=== PATIENT | male | born 1965 | race Two or more races ===

== ENCOUNTER 2016-10-17 10:36 | Inpatient (IN) | payer MEDICAID, MEDICARE ==
[2016-10-17] VITALS (32 sets, daily range): BP systolic 77–182; BP diastolic 29–81
[~2016-10-17] VITALS: Ht 172.7 cm; Wt 77.1 kg
[2016-10-17] MEDS ORDERED: PANTOPRAZOLE 40 MG VIAL ONE (10:51)
[2016-10-17] MEDS ORDERED: PANTOPRAZOLE 40 MG VIAL IV ONE (11:00)
[2016-10-17 11:11] LABS: BASOPHILS # (AUTO) 0.1 /CMM (0.0-0.2); BASOPHILS % (AUTO) 0.6 % (0.0-2.0); DIFF TOTAL % 100 %; EOSINOPHILS # (AUTO) 0.4 /CMM (0.0-0.7); EOSINOPHILS % (AUTO) 4.6 % (0.0-6.0); LYMPHOCYTES % (AUTO) 10.1 % (20.0-44.0); MEAN CORPUSCULAR HEMOGLOBIN 33 PG (26.0-33.0); MEAN CORPUSCULAR HGB CONC 34 g/dl (31.0-36.0); MEAN CORPUSCULAR VOLUME 96 fL (80-96); MONOCYTES # (AUTO) 0.8 /CMM (0.1-1.30); MONOCYTES % (AUTO) 8.6 % (2.0-12.0); NEUTROPHILS # (AUTO) 7.1 /CMM (1.8-8.9); NEUTROPHILS % (AUTO) 76.1 % (43.0-81.0); PLATELET COUNT (AUTO) 200 /CMM (150-450); WHITE BLOOD COUNT (AUTO) 9.4 K/uL (4.3-11.0)
[2016-10-17 11:15] LABS: RED BLOOD CELL COUNT(AUTO) 1.51 MIL/uL (4.5-6.0)
[2016-10-17 11:16] LABS: HEMOGLOBIN 4.9 g/dL (13.5-17.5)
[2016-10-17 11:17] LABS: HEMATOCRIT 14 % (39-51)
[2016-10-17 11:26] LABS: ALANINE AMINOTRANSFERASE 74 U/L (12-78); ANION GAP 11 (5-14); ASPARTATE AMINOTRANSFERASE 65 U/L (15-37); BILIRUBIN,DIRECT 0.2 mg/dL (0.0-0.2); BILIRUBIN,TOTAL 0.4 mg/dL (0.2-1.0); CALCIUM, SERUM 8.6 mg/dL (8.5-10.1); CARBON DIOXIDE 27 mmol/L (21-32); CHLORIDE 100 mmol/L (98-107); GFR 22 mL/min (>60); GLUCOSE 162 mg/dL (74-106); INDIRECT BILIRUBIN 0.2 mg/dL (0.0-1.1); POTASSIUM 4.8 mmol/L (3.5-5.1); SODIUM SERUM 133 mmol/L (136-145); TOTAL PROTEIN, SERUM 5.3 g/dL (6.4-8.2)
[2016-10-17 11:27] LABS: INR 1.2 (0.87-1.13); PROTHROMBIN TIME 12.6 SECS (9.5-12.7); TROPONIN I 0.071 ng/mL (0.00-0.056)
[2016-10-17 11:38] LABS: ALBUMIN 1.3 g/dL (3.4-5.0); UREA NITROGEN, BLOOD 96 mg/dL (7-18)
[2016-10-17 12:06] LABS: LACTIC ACID 2.2 mmol/L (0.4-2.0)
[2016-10-17 12:07] LABS: *LACTIC ACID REFLEX FLAG YES
[2016-10-17 12:42] LABS: ANISOCYTOSIS 1+; BAND % (MANUAL) 2 % (0.0-5.0); EOSINOPHILS % (MANUAL) 2 % (0-4); LYMPHOCYTES % (MANUAL) 7 % (16-48); PLATELET ESTIMATE ADEQUATE
[2016-10-17] MEDS ORDERED: BLOOD IV SET 1 EA INFUS.SET MC ONE ×2 (13:43→18:21)
[2016-10-17] MEDS ORDERED: IV NS 0.9% 250 ML IV ONE ×2 (13:43→18:22)
[2016-10-17] MEDS ORDERED: MAGNESIUM HYDROXIDE 30 ML UDC PO PRN (14:00)
[2016-10-17] MEDS ORDERED: MAG HYDROX/AL HYDROX/SIMETH 30 ML UDC PO PRN (14:00)
[2016-10-17] MEDS ORDERED: Z GUARD REMEDY 2 OZ OINT TP PRN (14:00)
[2016-10-17] MEDS ORDERED: ZOLPIDEM TARTRATE 5 MG TABLET PO PRN (14:00)
[2016-10-17] MEDS ORDERED: ONDANSETRON HCL/PF 4 MG/2 ML VIAL IVP PRN (14:00)
[2016-10-17] MEDS ORDERED: ACETAMINOPHEN 325 MG TABLET PO PRN (14:00)
[2016-10-18] VITALS (52 sets, daily range): BP systolic 112–153; BP diastolic 20–94
[2016-10-18 05:00] LABS: BASOPHILS # (AUTO) 0.1 /CMM (0.0-0.2); BASOPHILS % (AUTO) 0.6 % (0.0-2.0); DIFF TOTAL % 100 %; HEMATOCRIT 25 % (39-51); HEMOGLOBIN 8.4 g/dL (13.5-17.5); LYMPHOCYTES % (AUTO) 9.9 % (20.0-44.0); MEAN CORPUSCULAR HEMOGLOBIN 30 PG (26.0-33.0); MEAN CORPUSCULAR HGB CONC 34 g/dl (31.0-36.0); MEAN CORPUSCULAR VOLUME 89 fL (80-96); MONOCYTES # (AUTO) 0.7 /CMM (0.1-1.30); MONOCYTES % (AUTO) 7.1 % (2.0-12.0); NEUTROPHILS # (AUTO) 7.5 /CMM (1.8-8.9); NEUTROPHILS % (AUTO) 72.4 % (43.0-81.0); PLATELET COUNT (AUTO) 203 /CMM (150-450); RED BLOOD CELL COUNT(AUTO) 2.77 MIL/uL (4.5-6.0); WHITE BLOOD COUNT (AUTO) 10.3 K/uL (4.3-11.0)
[2016-10-18 05:15] LABS: BILIRUBIN,TOTAL 0.6 mg/dL (0.2-1.0); CALCIUM, SERUM 8.7 mg/dL (8.5-10.1); CREATININE 3.1 mg/dL (0.6-1.3); PHOSPHORUS 2.8 mg/dL (2.5-4.9); TOTAL PROTEIN, SERUM 5.6 g/dL (6.4-8.2)
[2016-10-18 05:37] LABS: ALBUMIN 1.4 g/dL (3.4-5.0)
[2016-10-18] MEDS ORDERED: PANTOPRAZOLE 40 MG TABLET.DR PO SCH (07:30)
[2016-10-18] MEDS: PANTOPRAZOLE 40 MG VIAL IV SCH (08:48)
[2016-10-18] MEDS ORDERED: EPOETIN ALFA (10,000 UNIT) 10,000 UNIT/ML VIAL SQ ONE (11:30)
[2016-10-18] MEDS ORDERED: IV SET PRIMARY PUMP SET 1 EA INFUS.SET MC ONE (11:40)
[2016-10-18] MEDS: IV D5/ 0.9% NACL 1,000 ML IV PRN (11:45)
[2016-10-18] MEDS ORDERED: SECONDARY IV SET 1 EA INFUS.SET MC ONE ×2 (13:16→16:41)
[2016-10-18] MEDS: MEROPENEM 500 MG in IV NS 0.9% 50 ML IV SCH (13:36)
[2016-10-18] MEDS ORDERED: ACET-868 GT (13:49)
[2016-10-18] MEDS ORDERED: HYDR-3326 GT (13:49)
[2016-10-18] MEDS ORDERED: THIA100T68 GT (13:49)
[2016-10-18] MEDS ORDERED: CHLO15MO2 MM (13:49)
[2016-10-18] MEDS ORDERED: ASPI81TA2 GT (13:49)
[2016-10-18] MEDS ORDERED: SUCR1ORA6 GT (13:49)
[2016-10-18] MEDS ORDERED: AMIO200T2 GT (13:49)
[2016-10-18] MEDS ORDERED: FOLI1TAB16 GT (13:49)
[2016-10-18] MEDS ORDERED: ZINC220C8 GT (13:49)
[2016-10-18] MEDS ORDERED: ASCO500S2 GT (13:49)
[2016-10-18] MEDS ORDERED: INSU100V27 SQ (13:49)
[2016-10-18] MEDS ORDERED: METO25TA6 GT (13:49)
[2016-10-18] MEDS ORDERED: FOLI0.8T2 GT (13:49)
[2016-10-18] MEDS ORDERED: NUTR100037 GT (13:49)
[2016-10-18] MEDS ORDERED: ACID1TAB12 GT (13:49)
[2016-10-18] MEDS ORDERED: AMIN30LI4 GT (13:49)
[2016-10-18] MEDS ORDERED: ATOR10TA GT (13:49)
[2016-10-18 14:04] LABS: HEMOGLOBIN 7.7 g/dL (13.5-17.5)
[2016-10-18] MEDS ORDERED: BLOOD IV SET 1 EA INFUS.SET MC ONE (16:24)
[2016-10-18] MEDS ORDERED: VANCOMYCIN 1 GM in IV D5W 250 ML IV ONE (17:00)
[2016-10-18] MEDS ORDERED: FEE PK DOSING 1 MIN EA MC ONE (19:29)
[2016-10-19] VITALS (40 sets, daily range): BP systolic 134–171; BP diastolic 38–88
[2016-10-19] MEDS: MEROPENEM 500 MG in IV NS 0.9% 50 ML IV SCH ×2 (01:32→13:30)
[2016-10-19 04:54] LABS: BASOPHILS % (AUTO) 0.5 % (0.0-2.0); DIFF TOTAL % 100 %; EOSINOPHILS # (AUTO) 1.3 /CMM (0.0-0.7); EOSINOPHILS % (AUTO) 17.8 % (0.0-6.0); HEMATOCRIT 25 % (39-51); HEMOGLOBIN 8.6 g/dL (13.5-17.5); LYMPHOCYTES # (AUTO) 0.6 /CMM (0.8-4.8); LYMPHOCYTES % (AUTO) 7.8 % (20.0-44.0); MEAN CORPUSCULAR HEMOGLOBIN 31 PG (26.0-33.0); MEAN CORPUSCULAR HGB CONC 34 g/dl (31.0-36.0); MEAN CORPUSCULAR VOLUME 89 fL (80-96); MONOCYTES # (AUTO) 0.6 /CMM (0.1-1.30); MONOCYTES % (AUTO) 8.2 % (2.0-12.0); NEUTROPHILS % (AUTO) 65.7 % (43.0-81.0); PLATELET COUNT (AUTO) 184 /CMM (150-450); RED BLOOD CELL COUNT(AUTO) 2.81 MIL/uL (4.5-6.0); WHITE BLOOD COUNT (AUTO) 7.6 K/uL (4.3-11.0)
[2016-10-19 05:05] LABS: CALCIUM, SERUM 8.4 mg/dL (8.5-10.1); CREATININE 2.6 mg/dL (0.6-1.3); PHOSPHORUS 2.8 mg/dL (2.5-4.9); POTASSIUM 4.1 mmol/L (3.5-5.1)
[2016-10-19] MEDS: PANTOPRAZOLE 40 MG VIAL IV SCH (07:50)
[2016-10-19] MEDS ORDERED: ROCURONIUM BROMIDE 50 MG/5 ML ONE (08:53)
[2016-10-19] MEDS ORDERED: VANCOMYCIN 500 MG in IV D5W 100 ML IV PRN (09:00)
[2016-10-19] MEDS ORDERED: RENAL NOVASOURCE 1,000 ML BOTTLE GT PRN (10:30)
[2016-10-19] MEDS: SUCRALFATE 1 G/10 ML UDC GT SCH ×3 (12:05→21:03)
[2016-10-19] MEDS ORDERED: HYDROGEL DRESSING 90 GM TUBE TP PRN (14:30)
[2016-10-19] MEDS: HYDROGEL DRESSING 90 GM TUBE TP SCH (14:41)
[2016-10-19] MEDS ORDERED: ANESTHESIA TRAY IN PYXIS 1 EA TRAY MC ONE (15:06)
[2016-10-19] MEDS: IV D5/ 0.9% NACL 1,000 ML IV PRN (21:05)
[2016-10-20] VITALS (44 sets, daily range): BP systolic 128–165; BP diastolic 42–106
[2016-10-20] MEDS: MEROPENEM 500 MG in IV NS 0.9% 50 ML IV SCH ×2 (01:57→13:50)
[2016-10-20 05:05] LABS: BASOPHILS % (AUTO) 0.3 % (0.0-2.0); DIFF TOTAL % 100 %; EOSINOPHILS # (AUTO) 1.3 /CMM (0.0-0.7); EOSINOPHILS % (AUTO) 13.8 % (0.0-6.0); HEMATOCRIT 26 % (39-51); HEMOGLOBIN 8.8 g/dL (13.5-17.5); LYMPHOCYTES # (AUTO) 0.6 /CMM (0.8-4.8); LYMPHOCYTES % (AUTO) 6.1 % (20.0-44.0); MEAN CORPUSCULAR HEMOGLOBIN 30 PG (26.0-33.0); MEAN CORPUSCULAR HGB CONC 34 g/dl (31.0-36.0); MEAN CORPUSCULAR VOLUME 90 fL (80-96); MONOCYTES # (AUTO) 0.7 /CMM (0.1-1.30); MONOCYTES % (AUTO) 7.5 % (2.0-12.0); NEUTROPHILS # (AUTO) 6.9 /CMM (1.8-8.9); NEUTROPHILS % (AUTO) 72.3 % (43.0-81.0); PLATELET COUNT (AUTO) 208 /CMM (150-450); RED BLOOD CELL COUNT(AUTO) 2.91 MIL/uL (4.5-6.0); WHITE BLOOD COUNT (AUTO) 9.5 K/uL (4.3-11.0)
[2016-10-20 05:27] LABS: CALCIUM, SERUM 8.3 mg/dL (8.5-10.1); CREATININE 2.9 mg/dL (0.6-1.3); PHOSPHORUS 3.4 mg/dL (2.5-4.9)
[2016-10-20] MEDS: PANTOPRAZOLE 40 MG VIAL IV SCH (09:13)
[2016-10-20] MEDS: HYDROCODONE/APAP 5/325MG 1 EACH TABLET PO PRN ×2 (09:13→17:23)
[2016-10-20] MEDS: HYDROGEL DRESSING 90 GM TUBE TP SCH (09:13)
[2016-10-20] MEDS: SUCRALFATE 1 G/10 ML UDC GT SCH ×4 (09:13→22:20)
[2016-10-20] MEDS ORDERED: EPOETIN ALFA (10,000 UNIT) 10,000 UNIT/ML VIAL SQ ONE (09:30)
[2016-10-20] MEDS ORDERED: LINEZOLID RTU BAG 600 MG in PREMIX 1 EA IV SCH (17:00)
[2016-10-20] MEDS: LINEZOLID RTU BAG 600 MG in PREMIX 1 EA IV SCH (17:52)
[2016-10-20] MEDS ORDERED: VANCOMYCIN 1 GM in IV D5W 250 ML IV ONE (18:00)
[2016-10-21] VITALS (14 sets, daily range): BP systolic 133–168; BP diastolic 72–97
[2016-10-21] MEDS: IV D5/ 0.9% NACL 1,000 ML IV PRN (01:36)
[2016-10-21] MEDS: LINEZOLID RTU BAG 600 MG in PREMIX 1 EA IV SCH (05:08)
[2016-10-21] MEDS ORDERED: VANCOMYCIN 500 MG in IV D5W 100 ML IV PRN (06:00)
[2016-10-21 08:19] LABS: BASOPHILS % (AUTO) 0.3 % (0.0-2.0); DIFF TOTAL % 100 %; EOSINOPHILS # (AUTO) 1.2 /CMM (0.0-0.7); EOSINOPHILS % (AUTO) 15.9 % (0.0-6.0); HEMATOCRIT 24 % (39-51); HEMOGLOBIN 8.2 g/dL (13.5-17.5); LYMPHOCYTES # (AUTO) 0.6 /CMM (0.8-4.8); LYMPHOCYTES % (AUTO) 7.7 % (20.0-44.0); MEAN CORPUSCULAR HEMOGLOBIN 31 PG (26.0-33.0); MEAN CORPUSCULAR HGB CONC 34 g/dl (31.0-36.0); MEAN CORPUSCULAR VOLUME 91 fL (80-96); MONOCYTES # (AUTO) 0.8 /CMM (0.1-1.30); MONOCYTES % (AUTO) 10.2 % (2.0-12.0); NEUTROPHILS # (AUTO) 5.1 /CMM (1.8-8.9); NEUTROPHILS % (AUTO) 65.9 % (43.0-81.0); PLATELET COUNT (AUTO) 202 /CMM (150-450); RED BLOOD CELL COUNT(AUTO) 2.68 MIL/uL (4.5-6.0); WHITE BLOOD COUNT (AUTO) 7.8 K/uL (4.3-11.0)
[2016-10-21] MEDS: PANTOPRAZOLE 40 MG VIAL IV SCH (08:23)
[2016-10-21] MEDS: SUCRALFATE 1 G/10 ML UDC GT SCH (08:23)
[2016-10-21] MEDS: HYDROGEL DRESSING 90 GM TUBE TP SCH (08:29)
== END 2016-10-21 16:45 | DRG 951 ==
LOC: ER 10:37 → ICU 12:05 → TELE 10-21 06:02
PROVIDERS: ADMIT Internal Medicine; ATTEND Internal Medicine
PROC: 5A1955Z Respiratory Ventilation, Greater than 96 Consecutive Hours (ICD-10-PCS; principal; 2016-10-17)
PROC: 30233N1 Transfusion of Nonautologous Red Blood Cells into Peripheral Vein, Percutaneous Approach (ICD-10-PCS; principal; 2016-10-17)
PROC: 5A1D60Z (ICD-10-PCS; 2016-10-18)
PROC: 0D598ZZ Destruction of Duodenum, Via Natural or Artificial Opening Endoscopic (ICD-10-PCS; 2016-10-19)
PROC: 0D568ZZ Destruction of Stomach, Via Natural or Artificial Opening Endoscopic (ICD-10-PCS; 2016-10-19)
PROC: 0KBN0ZZ Excision of Right Hip Muscle, Open Approach (ICD-10-PCS; 2016-10-20)
PROC: 0KBP0ZZ Excision of Left Hip Muscle, Open Approach (ICD-10-PCS; 2016-10-20)
DX: K31.811 Angiodysplasia of stomach and duodenum with bleeding (principal); I21.4 Non-ST elevation (NSTEMI) myocardial infarction; E43 Unspecified severe protein-calorie malnutrition; G93.41 Metabolic encephalopathy; G93.1 Anoxic brain damage, not elsewhere classified; I13.2 Hypertensive heart and chronic kidney disease with heart failure and with stage 5 chronic kidney disease, or end stage renal disease; L89.154 Pressure ulcer of sacral region, stage 4; J96.11 Chronic respiratory failure with hypoxia; Z99.11 Dependence on respirator [ventilator] status; N18.6 End stage renal disease; R53.2 Functional quadriplegia; D62 Acute posthemorrhagic anemia; D68.59 Other primary thrombophilia; I50.32 Chronic diastolic (congestive) heart failure; E11.22 Type 2 diabetes mellitus with diabetic chronic kidney disease; I25.10 Atherosclerotic heart disease of native coronary artery without angina pectoris; I25.2 Old myocardial infarction; I44.0 Atrioventricular block, first degree; Z74.01 Bed confinement status; Z93.0 Tracheostomy status; Z95.2 Presence of prosthetic heart valve; Z99.2 Dependence on renal dialysis; K44.9 Diaphragmatic hernia without obstruction or gangrene; B96.89 Other specified bacterial agents as the cause of diseases classified elsewhere; I73.9 Peripheral vascular disease, unspecified; K74.60 Unspecified cirrhosis of liver; Z95.1 Presence of aortocoronary bypass graft; D50.0 Iron deficiency anemia secondary to blood loss (chronic); I34.2 Nonrheumatic mitral (valve) stenosis; E88.09 Other disorders of plasma-protein metabolism, not elsewhere classified; I36.1 Nonrheumatic tricuspid (valve) insufficiency; E83.9 Disorder of mineral metabolism, unspecified; L98.9 Disorder of the skin and subcutaneous tissue, unspecified; E11.622 Type 2 diabetes mellitus with other skin ulcer; L97.911 Non-pressure chronic ulcer of unspecified part of right lower leg limited to breakdown of skin; L97.311 Non-pressure chronic ulcer of right ankle limited to breakdown of skin; Z93.1 Gastrostomy status; B95.2 Enterococcus as the cause of diseases classified elsewhere; Z16.21 Resistance to vancomycin
CPT/HCPCS: 31720; 36415; 71010-TC; 80048-TC; 80053-TC; 80061-TC; 80076-TC; 80202-TC; 82272-TC; 82962-TC; 83605-TC; 83690-TC; 83735-TC; 84100-TC; 84484-TC; 85025-TC; 85027-TC; 85730-TC; 86850-TC; 86921-TC; 87040-TC; 87081-TC; 87186-TC; 90935-TC; 94002-TC; 94003-TC; 94760-TC; A4216; A4217; A4606; A6248; A6253; A6402; A6403; C9113; J0885; J2020; J2185; J3370; J7042; J7050; J7060; P9016-BL; Z7610

== ENCOUNTER 2016-10-22 00:26 | Inpatient (IN) | payer MEDICARE, MEDICAID ==
[~2016-10-22] VITALS: Ht 170.2 cm; Wt 71.2 kg
[~2016-10-22 00:26] MED LIST: ACET-868 GT; ACID1TAB12 GT; AMIN30LI4 GT; AMIO200T2 GT; ASCO500S2 GT; ASPI81TA2 GT; ATOR10TA GT; CHLO15MO2 MM; FOLI0.8T2 GT; FOLI1TAB16 GT; HYDR-3326 GT; INSU100V27 SQ; METO25TA6 GT; NUTR100037 GT; SUCR1ORA6 GT; THIA100T68 GT; ZINC220C8 GT
[2016-10-22 01:04] LABS: BASOPHILS % (AUTO) 0.1 % (0.0-2.0); DIFF TOTAL % 100 %; EOSINOPHILS # (AUTO) 1.1 /CMM (0.0-0.7); EOSINOPHILS % (AUTO) 11.7 % (0.0-6.0); HEMATOCRIT 27 % (39-51); LYMPHOCYTES # (AUTO) 0.6 /CMM (0.8-4.8); LYMPHOCYTES % (AUTO) 6.5 % (20.0-44.0); MEAN CORPUSCULAR HEMOGLOBIN 30 PG (26.0-33.0); MEAN CORPUSCULAR HGB CONC 33 g/dl (31.0-36.0); MEAN CORPUSCULAR VOLUME 91 fL (80-96); MONOCYTES # (AUTO) 0.8 /CMM (0.1-1.30); MONOCYTES % (AUTO) 8.3 % (2.0-12.0); NEUTROPHILS # (AUTO) 7.1 /CMM (1.8-8.9); NEUTROPHILS % (AUTO) 73.4 % (43.0-81.0); PLATELET COUNT (AUTO) 222 /CMM (150-450); RED BLOOD CELL COUNT(AUTO) 2.97 MIL/uL (4.5-6.0); WHITE BLOOD COUNT (AUTO) 9.7 K/uL (4.3-11.0)
[2016-10-22 01:15] LABS: CALCIUM, SERUM 8.6 mg/dL (8.5-10.1); CREATININE 2.8 mg/dL (0.6-1.3); POTASSIUM 3.9 mmol/L (3.5-5.1)
[2016-10-22 01:19] LABS: INR 1.06 (0.87-1.13); PROTHROMBIN TIME 11.5 SECS (9.5-12.7)
[2016-10-22 01:20] LABS: ALBUMIN 1.6 g/dL (3.4-5.0); BILIRUBIN,DIRECT 0.2 mg/dL (0.0-0.2); BILIRUBIN,TOTAL 0.5 mg/dL (0.2-1.0); INDIRECT BILIRUBIN 0.3 mg/dL (0.0-1.1); TOTAL PROTEIN, SERUM 6.4 g/dL (6.4-8.2)
[2016-10-22 01:22] LABS: TROPONIN I 0.035 ng/mL (0.00-0.056)
[2016-10-22 01:28] LABS: LACTIC ACID 1.1 mmol/L (0.4-2.0)
[2016-10-22 02:00] VITALS: BP 168/95
[2016-10-22] MEDS ORDERED: ZOLPIDEM TARTRATE 5 MG TABLET PO PRN (02:30)
[2016-10-22] MEDS ORDERED: ACETAMINOPHEN 325 MG TABLET PO PRN (02:30)
[2016-10-22] MEDS ORDERED: DEXTROSE 50%-WATER 50 ML DISP.SYRIN IV PRN (02:30)
[2016-10-22] MEDS ORDERED: ONDANSETRON HCL/PF 4 MG/2 ML VIAL IVP PRN (02:30)
[2016-10-22] MEDS ORDERED: MAGNESIUM HYDROXIDE 30 ML UDC PO PRN (02:30)
[2016-10-22] MEDS ORDERED: MORPHINE SULFATE INJ 2 MG/ML DISP.SYRIN IV PRN (02:30)
[2016-10-22] MEDS ORDERED: MAG HYDROX/AL HYDROX/SIMETH 30 ML UDC PO PRN (02:30)
[2016-10-22 04:00] VITALS: BP 159/83
[2016-10-22] MEDS ORDERED: hydrALAZINE HCL 10 MG TABLET ONE (04:41)
[2016-10-22] MEDS ORDERED: SUCRALFATE 1 G/10 ML UDC ONE (04:42)
[2016-10-22] MEDS ORDERED: MEROPENEM 1 G in IV NS 0.9% 100 ML IV SCH (05:00)
[2016-10-22] MEDS ORDERED: IV SET PRIMARY PUMP SET 1 EA INFUS.SET MC ONE (05:11)
[2016-10-22] MEDS ORDERED: IV NS 0.9% 1,000 ML ONE (05:11)
[2016-10-22] MEDS ORDERED: SECONDARY IV SET 1 EA INFUS.SET MC ONE ×2 (05:11→09:21)
[2016-10-22] MEDS: hydrALAZINE HCL 10 MG TABLET PEG PRN (05:26)
[2016-10-22] MEDS: BLOOD SUGAR DIAGNOSTIC 1 EACH STRIP IN SCH ×3 (05:27→17:49)
[2016-10-22] MEDS: SUCRALFATE 1 G/10 ML UDC GT SCH ×3 (05:27→17:39)
[2016-10-22] MEDS: IV NS 0.9% 1,000 ML IV PRN ×2 (05:33→17:53)
[2016-10-22] MEDS ORDERED: hydrALAZINE HCL 10 MG TABLET PEG ONE (06:00)
[2016-10-22] MEDS ORDERED: IV NS 0.9% 100 ML IV ONE (06:30)
[2016-10-22 06:55] VITALS: BP 148/78
[2016-10-22] MEDS ORDERED: ASCORBIC ACID SYRUP 500 MG/5 ML UDC GT SCH (09:00)
[2016-10-22] MEDS ORDERED: METOPROLOL TARTRATE 25 MG TABLET GT SCH (09:00)
[2016-10-22] MEDS ORDERED: AMIODARONE HCL 200 MG TABLET GT SCH (09:00)
[2016-10-22 09:03] LABS: BASOPHILS % (AUTO) 0.2 % (0.0-2.0); DIFF TOTAL % 100 %; EOSINOPHILS # (AUTO) 1.4 /CMM (0.0-0.7); HEMATOCRIT 28 % (39-51); HEMOGLOBIN 9.4 g/dL (13.5-17.5); LYMPHOCYTES # (AUTO) 0.6 /CMM (0.8-4.8); LYMPHOCYTES % (AUTO) 7.9 % (20.0-44.0); MEAN CORPUSCULAR HEMOGLOBIN 31 PG (26.0-33.0); MEAN CORPUSCULAR HGB CONC 34 g/dl (31.0-36.0); MEAN CORPUSCULAR VOLUME 91 fL (80-96); MONOCYTES # (AUTO) 0.7 /CMM (0.1-1.30); MONOCYTES % (AUTO) 8.9 % (2.0-12.0); NEUTROPHILS # (AUTO) 5.2 /CMM (1.8-8.9); PLATELET COUNT (AUTO) 208 /CMM (150-450); RED BLOOD CELL COUNT(AUTO) 3.05 MIL/uL (4.5-6.0)
[2016-10-22] MEDS: VIT B CMPLX 3/FA/VIT C/BIOTIN 1 TAB TABLET GT SCH (09:03)
[2016-10-22] MEDS: ASPIRIN 81 MG TAB.CHEW GT SCH (09:04)
[2016-10-22] MEDS: ZINC SULFATE 220 MG CAPSULE GT SCH (09:04)
[2016-10-22] MEDS: THIAMINE HCL 100 MG TABLET GT SCH (09:04)
[2016-10-22] MEDS: ACIDOPHILUS/BULGARICUS 1 EACH TAB.CHEW GT SCH ×2 (09:04→17:39)
[2016-10-22] MEDS: PANTOPRAZOLE 40 MG VIAL IV SCH (09:07)
[2016-10-22] MEDS: CHLORHEXIDINE GLUCONATE 15 ML UDC MM SCH ×2 (09:07→20:39)
[2016-10-22] MEDS: HEPARIN SODIUM, PORCINE 5000 UNITS/1 ML VIAL SQ SCH ×2 (09:08→20:50)
[2016-10-22] MEDS: LINEZOLID RTU BAG 600 MG in PREMIX 1 EA IV SCH ×2 (09:10→20:38)
[2016-10-22] MEDS: RENAL NOVASOURCE 1,000 ML BOTTLE GT PRN (09:10)
[2016-10-22] MEDS: PROSOURCE / PROSTAT (PYXIS) 30 ML UDC GT SCH (09:12)
[2016-10-22] MEDS: Z GUARD REMEDY 2 OZ OINT TP PRN (09:15)
[2016-10-22] MEDS: ASCORBIC ACID 500 MG TABLET GT SCH ×2 (09:18→17:39)
[2016-10-22 09:19] LABS: CALCIUM, SERUM 8.5 mg/dL (8.5-10.1); CREATININE 2.9 mg/dL (0.6-1.3); PHOSPHORUS 2.7 mg/dL (2.5-4.9); POTASSIUM 3.9 mmol/L (3.5-5.1)
[2016-10-22 10:08] LABS: ANISOCYTOSIS 2+; PLATELET ESTIMATE ADEQUATE; RBC MORPHOLOGY COMMENT DIMORPHIC RBC MORPH
[2016-10-22 12:00] VITALS: BP 148/73
[2016-10-22] MEDS ORDERED: ALBUMIN 25% 25 GM in PREMIX 1 EA IV PRN (12:00)
[2016-10-22 16:00] VITALS: BP 150/70
[2016-10-22] MEDS: MEROPENEM 1 G in IV NS 0.9% 100 ML IV SCH (17:42)
[2016-10-22] MEDS: COD LIVER OIL/ZINC OXIDE 120 GM TUBE TP SCH (17:45)
[2016-10-22] MEDS: HYDROGEL DRESSING 90 GM TUBE TP SCH (17:46)
[2016-10-22] MEDS: CLOTRIMAZOLE 1% 15 GM TUBE TP SCH ×2 (17:46→17:55)
[2016-10-22] MEDS: INSULIN REGULAR, HUMAN 100 UNIT/ML 3 ML VIAL SQ PRN (17:53)
[2016-10-22 20:00] VITALS: BP 155/50
[2016-10-22] MEDS: ATORVASTATIN 10 MG TABLET GT SCH (21:41)
[2016-10-23] VITALS (9 sets, daily range): BP systolic 154–178; BP diastolic 22–93
[2016-10-23] MEDS: SUCRALFATE 1 G/10 ML UDC GT SCH ×4 (00:11→16:59)
[2016-10-23] MEDS: INSULIN REGULAR, HUMAN 100 UNIT/ML 3 ML VIAL SQ PRN ×2 (00:13→17:41)
[2016-10-23] MEDS: BLOOD SUGAR DIAGNOSTIC 1 EACH STRIP IN SCH ×4 (00:16→16:59)
[2016-10-23] MEDS: MEROPENEM 1 G in IV NS 0.9% 100 ML IV SCH ×2 (04:58→16:57)
[2016-10-23] MEDS: RENAL NOVASOURCE 1,000 ML BOTTLE GT PRN (05:27)
[2016-10-23] MEDS: PROSOURCE / PROSTAT (PYXIS) 30 ML UDC GT SCH (05:29)
[2016-10-23] MEDS: COD LIVER OIL/ZINC OXIDE 120 GM TUBE TP SCH (08:20)
[2016-10-23] MEDS: CLOTRIMAZOLE 1% 15 GM TUBE TP SCH ×2 (08:21→17:00)
[2016-10-23] MEDS: HYDROGEL DRESSING 90 GM TUBE TP SCH (08:21)
[2016-10-23] MEDS: LINEZOLID RTU BAG 600 MG in PREMIX 1 EA IV SCH (08:22)
[2016-10-23] MEDS: CHLORHEXIDINE GLUCONATE 15 ML UDC MM SCH ×2 (08:23→21:55)
[2016-10-23] MEDS: VIT B CMPLX 3/FA/VIT C/BIOTIN 1 TAB TABLET GT SCH (08:23)
[2016-10-23] MEDS: ZINC SULFATE 220 MG CAPSULE GT SCH (08:24)
[2016-10-23] MEDS: ACIDOPHILUS/BULGARICUS 1 EACH TAB.CHEW GT SCH ×2 (08:24→16:59)
[2016-10-23] MEDS: ASPIRIN 81 MG TAB.CHEW GT SCH (08:24)
[2016-10-23] MEDS: THIAMINE HCL 100 MG TABLET GT SCH (08:24)
[2016-10-23] MEDS: ASCORBIC ACID 500 MG TABLET GT SCH ×2 (08:24→16:59)
[2016-10-23] MEDS: PANTOPRAZOLE 40 MG VIAL IV SCH (08:24)
[2016-10-23] MEDS: HEPARIN SODIUM, PORCINE 5000 UNITS/1 ML VIAL SQ SCH ×2 (08:29→22:00)
[2016-10-23] MEDS ORDERED: SECONDARY IV SET 1 EA INFUS.SET MC ONE (08:37)
[2016-10-23] MEDS: IV NS 0.9% 1,000 ML IV PRN (13:36)
[2016-10-23] MEDS: hydrALAZINE HCL 25 MG TABLET GT SCH ×2 (14:26→21:55)
[2016-10-23] MEDS ORDERED: hydrALAZINE HCL IV 20 MG VIAL IV PRN (14:30)
[2016-10-23] MEDS ORDERED: hydrALAZINE HCL 25 MG TABLET PO SCH (14:30)
[2016-10-23] MEDS: hydrALAZINE HCL 10 MG TABLET PEG PRN (16:58)
[2016-10-23] MEDS: ATORVASTATIN 10 MG TABLET GT SCH (21:55)
[2016-10-23] MEDS: LINEZOLID 600 MG TABLET GT SCH (21:55)
[2016-10-24] VITALS (12 sets, daily range): BP systolic 122–157; BP diastolic 51–98
[2016-10-24] MEDS: RENAL NOVASOURCE 1,000 ML BOTTLE GT PRN (00:32)
[2016-10-24] MEDS: SUCRALFATE 1 G/10 ML UDC GT SCH ×5 (00:32→23:14)
[2016-10-24] MEDS: BLOOD SUGAR DIAGNOSTIC 1 EACH STRIP IN SCH ×5 (00:32→23:25)
[2016-10-24] MEDS: INSULIN REGULAR, HUMAN 100 UNIT/ML 3 ML VIAL SQ PRN ×3 (00:45→23:28)
[2016-10-24] MEDS: IV NS 0.9% 1,000 ML IV PRN (03:32)
[2016-10-24] MEDS: PROSOURCE / PROSTAT (PYXIS) 30 ML UDC GT SCH (05:01)
[2016-10-24] MEDS: hydrALAZINE HCL 25 MG TABLET GT SCH ×3 (05:01→22:05)
[2016-10-24 07:49] LABS: CALCIUM, SERUM 7.9 mg/dL (8.5-10.1); CREATININE 2.4 mg/dL (0.6-1.3); PHOSPHORUS 1.8 mg/dL (2.5-4.9); POTASSIUM 3.7 mmol/L (3.5-5.1)
[2016-10-24 07:51] LABS: BASOPHILS % (AUTO) 0.4 % (0.0-2.0); DIFF TOTAL % 100 %; EOSINOPHILS # (AUTO) 1.9 /CMM (0.0-0.7); EOSINOPHILS % (AUTO) 17.2 % (0.0-6.0); HEMATOCRIT 23 % (39-51); HEMOGLOBIN 7.8 g/dL (13.5-17.5); LYMPHOCYTES # (AUTO) 0.4 /CMM (0.8-4.8); MEAN CORPUSCULAR HEMOGLOBIN 31 PG (26.0-33.0); MEAN CORPUSCULAR HGB CONC 34 g/dl (31.0-36.0); MEAN CORPUSCULAR VOLUME 92 fL (80-96); MONOCYTES # (AUTO) 0.7 /CMM (0.1-1.30); MONOCYTES % (AUTO) 6.7 % (2.0-12.0); NEUTROPHILS # (AUTO) 7.8 /CMM (1.8-8.9); NEUTROPHILS % (AUTO) 71.7 % (43.0-81.0); PLATELET COUNT (AUTO) 207 /CMM (150-450); RED BLOOD CELL COUNT(AUTO) 2.51 MIL/uL (4.5-6.0); WHITE BLOOD COUNT (AUTO) 10.9 K/uL (4.3-11.0)
[2016-10-24] MEDS: HEPARIN SODIUM, PORCINE 5000 UNITS/1 ML VIAL SQ SCH (09:00)
[2016-10-24] MEDS: CHLORHEXIDINE GLUCONATE 15 ML UDC MM SCH ×2 (09:04→22:06)
[2016-10-24] MEDS: VIT B CMPLX 3/FA/VIT C/BIOTIN 1 TAB TABLET GT SCH (09:04)
[2016-10-24] MEDS: LINEZOLID 600 MG TABLET GT SCH ×2 (09:05→22:05)
[2016-10-24] MEDS: ASCORBIC ACID 500 MG TABLET GT SCH ×2 (09:05→17:00)
[2016-10-24] MEDS: ASPIRIN 81 MG TAB.CHEW GT SCH (09:05)
[2016-10-24] MEDS: ZINC SULFATE 220 MG CAPSULE GT SCH (09:05)
[2016-10-24] MEDS: PANTOPRAZOLE 40 MG VIAL IV SCH (09:05)
[2016-10-24] MEDS: THIAMINE HCL 100 MG TABLET GT SCH (09:05)
[2016-10-24] MEDS: ACIDOPHILUS/BULGARICUS 1 EACH TAB.CHEW GT SCH ×2 (09:05→17:00)
[2016-10-24] MEDS: HYDROGEL DRESSING 90 GM TUBE TP SCH (09:06)
[2016-10-24] MEDS: COD LIVER OIL/ZINC OXIDE 120 GM TUBE TP SCH (09:06)
[2016-10-24] MEDS: CLOTRIMAZOLE 1% 15 GM TUBE TP SCH ×2 (09:06→17:01)
[2016-10-24] MEDS ORDERED: EPOETIN ALFA (10,000 UNIT) 10,000 UNIT/ML VIAL SQ ONE (12:00)
[2016-10-24] MEDS ORDERED: Magnesium 1GM/D5W 100ML PREMIX 100 ML IV SCH (13:00)
[2016-10-24] MEDS ORDERED: NEUTRA PHOS 1 POWD.PACKET GT ONE (16:00)
[2016-10-24] MEDS ORDERED: BLOOD IV SET 1 EA INFUS.SET MC ONE (19:17)
[2016-10-24] MEDS ORDERED: IV NS 0.9% 250 ML IV ONE (19:18)
[2016-10-24] MEDS: ATORVASTATIN 10 MG TABLET GT SCH (22:06)
[2016-10-25] VITALS (8 sets, daily range): BP systolic 137–161; BP diastolic 22–89
[2016-10-25] MEDS: RENAL NOVASOURCE 1,000 ML BOTTLE GT PRN (01:57)
[2016-10-25] MEDS: hydrALAZINE HCL 25 MG TABLET GT SCH ×3 (05:33→21:16)
[2016-10-25] MEDS: PROSOURCE / PROSTAT (PYXIS) 30 ML UDC GT SCH (05:33)
[2016-10-25] MEDS: SUCRALFATE 1 G/10 ML UDC GT SCH ×4 (05:33→23:39)
[2016-10-25] MEDS: BLOOD SUGAR DIAGNOSTIC 1 EACH STRIP IN SCH ×4 (05:48→23:39)
[2016-10-25] MEDS: INSULIN REGULAR, HUMAN 100 UNIT/ML 3 ML VIAL SQ PRN ×2 (05:49→17:27)
[2016-10-25] MEDS: IV NS 0.9% 1,000 ML IV PRN (06:15)
[2016-10-25 07:55] LABS: CALCIUM, SERUM 8.3 mg/dL (8.5-10.1); PHOSPHORUS 1.5 mg/dL (2.5-4.9); POTASSIUM 4.2 mmol/L (3.5-5.1)
[2016-10-25] MEDS: LINEZOLID 600 MG TABLET GT SCH ×2 (10:40→21:15)
[2016-10-25] MEDS: ASCORBIC ACID 500 MG TABLET GT SCH ×2 (10:40→17:05)
[2016-10-25] MEDS: ZINC SULFATE 220 MG CAPSULE GT SCH (10:40)
[2016-10-25] MEDS: PANTOPRAZOLE 40 MG VIAL IV SCH (10:40)
[2016-10-25] MEDS: ASPIRIN 81 MG TAB.CHEW GT SCH (10:40)
[2016-10-25] MEDS: THIAMINE HCL 100 MG TABLET GT SCH (10:41)
[2016-10-25] MEDS: VIT B CMPLX 3/FA/VIT C/BIOTIN 1 TAB TABLET GT SCH (10:41)
[2016-10-25] MEDS: CHLORHEXIDINE GLUCONATE 15 ML UDC MM SCH ×2 (10:41→21:15)
[2016-10-25] MEDS: ACIDOPHILUS/BULGARICUS 1 EACH TAB.CHEW GT SCH ×2 (10:41→17:05)
[2016-10-25] MEDS: HYDROGEL DRESSING 90 GM TUBE TP SCH (10:44)
[2016-10-25] MEDS: CLOTRIMAZOLE 1% 15 GM TUBE TP SCH ×2 (10:44→17:06)
[2016-10-25] MEDS: COD LIVER OIL/ZINC OXIDE 120 GM TUBE TP SCH (10:44)
[2016-10-25 13:36] LABS: DIFF TOTAL % 100 %; EOSINOPHILS # (AUTO) 1.5 /CMM (0.0-0.7); EOSINOPHILS % (AUTO) 16.9 % (0.0-6.0); HEMATOCRIT 25 % (39-51); HEMOGLOBIN 8.2 g/dL (13.5-17.5); LYMPHOCYTES # (AUTO) 0.8 /CMM (0.8-4.8); LYMPHOCYTES % (AUTO) 8.6 % (20.0-44.0); MEAN CORPUSCULAR HEMOGLOBIN 31 PG (26.0-33.0); MEAN CORPUSCULAR HGB CONC 33 g/dl (31.0-36.0); MEAN CORPUSCULAR VOLUME 92 fL (80-96); MONOCYTES # (AUTO) 0.7 /CMM (0.1-1.30); MONOCYTES % (AUTO) 7.9 % (2.0-12.0); NEUTROPHILS # (AUTO) 5.9 /CMM (1.8-8.9); NEUTROPHILS % (AUTO) 66.6 % (43.0-81.0); PLATELET COUNT (AUTO) 84 /CMM (150-450); RED BLOOD CELL COUNT(AUTO) 2.68 MIL/uL (4.5-6.0); WHITE BLOOD COUNT (AUTO) 8.8 K/uL (4.3-11.0)
[2016-10-25 14:36] LABS: EOSINOPHILS % (MANUAL) 16 % (0-4); LYMPHOCYTES % (MANUAL) 10 % (16-48)
[2016-10-25 14:38] LABS: PLATELET ESTIMATE DECREASED
[2016-10-25 14:40] LABS: ANISOCYTOSIS 2+
[2016-10-25] MEDS ORDERED: NEUTRA PHOS 1 POWD.PACKET GT ONE (16:00)
[2016-10-25] MEDS: ATORVASTATIN 10 MG TABLET GT SCH (21:16)
[2016-10-25] MEDS ORDERED: MORPHINE SULFATE INJ 2 MG/ML DISP.SYRIN IV PRN (22:30)
[2016-10-25] MEDS ORDERED: MORPHINE SULFATE INJ 2 MG/ML DISP.SYRIN IM PRN (22:30)
[2016-10-26] VITALS (12 sets, daily range): BP systolic 130–182; BP diastolic 77–99
[2016-10-26] MEDS: RENAL NOVASOURCE 1,000 ML BOTTLE GT PRN (03:39)
[2016-10-26] MEDS: hydrALAZINE HCL 25 MG TABLET GT SCH ×3 (05:16→21:10)
[2016-10-26] MEDS: SUCRALFATE 1 G/10 ML UDC GT SCH ×3 (05:21→17:36)
[2016-10-26] MEDS: PROSOURCE / PROSTAT (PYXIS) 30 ML UDC GT SCH (05:22)
[2016-10-26] MEDS: BLOOD SUGAR DIAGNOSTIC 1 EACH STRIP IN SCH ×3 (05:43→17:37)
[2016-10-26] MEDS: THIAMINE HCL 100 MG TABLET GT SCH (09:28)
[2016-10-26] MEDS: ZINC SULFATE 220 MG CAPSULE GT SCH (09:28)
[2016-10-26] MEDS: ASPIRIN 81 MG TAB.CHEW GT SCH (09:28)
[2016-10-26] MEDS: LINEZOLID 600 MG TABLET GT SCH ×2 (09:28→21:10)
[2016-10-26] MEDS: CHLORHEXIDINE GLUCONATE 15 ML UDC MM SCH ×2 (09:28→21:10)
[2016-10-26] MEDS: VIT B CMPLX 3/FA/VIT C/BIOTIN 1 TAB TABLET GT SCH (09:28)
[2016-10-26] MEDS: ACIDOPHILUS/BULGARICUS 1 EACH TAB.CHEW GT SCH ×2 (09:28→17:37)
[2016-10-26] MEDS: ASCORBIC ACID 500 MG TABLET GT SCH ×2 (09:28→17:36)
[2016-10-26] MEDS: HYDROGEL DRESSING 90 GM TUBE TP SCH (09:29)
[2016-10-26] MEDS: Z GUARD REMEDY 2 OZ OINT TP PRN (09:29)
[2016-10-26] MEDS: CLOTRIMAZOLE 1% 15 GM TUBE TP SCH ×2 (09:30→17:37)
[2016-10-26] MEDS: COD LIVER OIL/ZINC OXIDE 120 GM TUBE TP SCH (09:30)
[2016-10-26] MEDS: PANTOPRAZOLE 40 MG/PACK PACK GT SCH (09:32)
[2016-10-26] MEDS: INSULIN REGULAR, HUMAN 100 UNIT/ML 3 ML VIAL SQ PRN (12:54)
[2016-10-26] MEDS ORDERED: NEUTRA PHOS 1 POWD.PACKET GT ONE (16:00)
[2016-10-26 16:12] LABS: BASOPHILS % (AUTO) 0.3 % (0.0-2.0); DIFF TOTAL % 100 %; EOSINOPHILS # (AUTO) 2.1 /CMM (0.0-0.7); EOSINOPHILS % (AUTO) 22.5 % (0.0-6.0); HEMATOCRIT 22 % (39-51); HEMOGLOBIN 7.3 g/dL (13.5-17.5); LYMPHOCYTES # (AUTO) 0.6 /CMM (0.8-4.8); LYMPHOCYTES % (AUTO) 6.7 % (20.0-44.0); MEAN CORPUSCULAR HEMOGLOBIN 31 PG (26.0-33.0); MEAN CORPUSCULAR HGB CONC 33 g/dl (31.0-36.0); MEAN CORPUSCULAR VOLUME 92 fL (80-96); MONOCYTES # (AUTO) 0.7 /CMM (0.1-1.30); MONOCYTES % (AUTO) 7.5 % (2.0-12.0); NEUTROPHILS # (AUTO) 6.1 /CMM (1.8-8.9); PLATELET COUNT (AUTO) 191 /CMM (150-450); RED BLOOD CELL COUNT(AUTO) 2.39 MIL/uL (4.5-6.0); WHITE BLOOD COUNT (AUTO) 9.5 K/uL (4.3-11.0)
[2016-10-26 16:46] LABS: EOSINOPHILS % (MANUAL) 24 % (0-4); LYMPHOCYTES % (MANUAL) 8 % (16-48)
[2016-10-26 16:47] LABS: ANISOCYTOSIS 1+; PLATELET ESTIMATE ADEQUATE
[2016-10-26] MEDS: ATORVASTATIN 10 MG TABLET GT SCH (21:11)
[2016-10-26] MEDS ORDERED: IV NS 0.9% 250 ML IV ONE (21:18)
[2016-10-26] MEDS ORDERED: BLOOD IV SET 1 EA INFUS.SET MC ONE (21:19)
[2016-10-27] VITALS (13 sets, daily range): BP systolic 102–169; BP diastolic 56–97
[2016-10-27] MEDS: SUCRALFATE 1 G/10 ML UDC GT SCH ×5 (00:45→23:48)
[2016-10-27] MEDS: BLOOD SUGAR DIAGNOSTIC 1 EACH STRIP IN SCH ×5 (00:47→23:55)
[2016-10-27] MEDS: INSULIN REGULAR, HUMAN 100 UNIT/ML 3 ML VIAL SQ PRN ×4 (00:53→23:51)
[2016-10-27] MEDS: RENAL NOVASOURCE 1,000 ML BOTTLE GT PRN (03:16)
[2016-10-27] MEDS: hydrALAZINE HCL 25 MG TABLET GT SCH ×3 (05:59→21:00)
[2016-10-27] MEDS: PROSOURCE / PROSTAT (PYXIS) 30 ML UDC GT SCH (06:03)
[2016-10-27 07:58] LABS: BASOPHILS % (AUTO) 0.1 % (0.0-2.0); DIFF TOTAL % 100 %; EOSINOPHILS # (AUTO) 1.8 /CMM (0.0-0.7); EOSINOPHILS % (AUTO) 18.9 % (0.0-6.0); HEMATOCRIT 23 % (39-51); HEMOGLOBIN 7.8 g/dL (13.5-17.5); LYMPHOCYTES # (AUTO) 0.6 /CMM (0.8-4.8); LYMPHOCYTES % (AUTO) 6.5 % (20.0-44.0); MEAN CORPUSCULAR HEMOGLOBIN 31 PG (26.0-33.0); MEAN CORPUSCULAR HGB CONC 34 g/dl (31.0-36.0); MEAN CORPUSCULAR VOLUME 91 fL (80-96); MONOCYTES # (AUTO) 0.6 /CMM (0.1-1.30); NEUTROPHILS # (AUTO) 6.6 /CMM (1.8-8.9); NEUTROPHILS % (AUTO) 68.5 % (43.0-81.0); PLATELET COUNT (AUTO) 171 /CMM (150-450); RED BLOOD CELL COUNT(AUTO) 2.53 MIL/uL (4.5-6.0); WHITE BLOOD COUNT (AUTO) 9.6 K/uL (4.3-11.0)
[2016-10-27] MEDS: LINEZOLID 600 MG TABLET GT SCH (10:02)
[2016-10-27] MEDS: THIAMINE HCL 100 MG TABLET GT SCH (10:02)
[2016-10-27] MEDS: ASPIRIN 81 MG TAB.CHEW GT SCH (10:02)
[2016-10-27] MEDS: CHLORHEXIDINE GLUCONATE 15 ML UDC MM SCH ×2 (10:02→20:59)
[2016-10-27] MEDS: ACIDOPHILUS/BULGARICUS 1 EACH TAB.CHEW GT SCH ×2 (10:02→17:30)
[2016-10-27] MEDS: ZINC SULFATE 220 MG CAPSULE GT SCH (10:03)
[2016-10-27] MEDS: PANTOPRAZOLE 40 MG/PACK PACK GT SCH (10:03)
[2016-10-27] MEDS: VIT B CMPLX 3/FA/VIT C/BIOTIN 1 TAB TABLET GT SCH (10:03)
[2016-10-27] MEDS: ASCORBIC ACID 500 MG TABLET GT SCH ×2 (10:03→17:30)
[2016-10-27] MEDS: HYDROGEL DRESSING 90 GM TUBE TP SCH (10:04)
[2016-10-27] MEDS: COD LIVER OIL/ZINC OXIDE 120 GM TUBE TP SCH (10:04)
[2016-10-27] MEDS: CLOTRIMAZOLE 1% 15 GM TUBE TP SCH ×2 (10:05→17:32)
[2016-10-27] MEDS ORDERED: SILVER NITRATE APPLICATOR 1 EA BOX TP ONE ×2 (12:00)
[2016-10-27] MEDS ORDERED: LIDOCAINE 1%-EPI 1:100,000 50 ML VIAL IJ ONE (12:00)
[2016-10-27] MEDS ORDERED: NEUTRA PHOS 1 POWD.PACKET GT ONE (14:30)
[2016-10-27] MEDS ORDERED: IV NS 0.9% 250 ML IV ONE (15:59)
[2016-10-27] MEDS ORDERED: BLOOD IV SET 1 EA INFUS.SET MC ONE (16:00)
[2016-10-27] MEDS ORDERED: ONDANSETRON HCL/PF 4 MG/2 ML VIAL IV PRN (19:00)
[2016-10-27] MEDS: ATORVASTATIN 10 MG TABLET GT SCH (21:00)
[2016-10-27] MEDS ORDERED: IV SET PRIMARY PUMP SET 1 EA INFUS.SET MC ONE (21:49)
[2016-10-27] MEDS: LINEZOLID RTU BAG 600 MG in PREMIX 1 EA IV SCH (21:53)
[2016-10-28] VITALS (22 sets, daily range): BP systolic 94–125; BP diastolic 53–78
[2016-10-28] MEDS: RENAL NOVASOURCE 1,000 ML BOTTLE GT PRN (04:12)
[2016-10-28] MEDS: hydrALAZINE HCL 25 MG TABLET GT SCH ×3 (05:00→21:40)
[2016-10-28] MEDS: SUCRALFATE 1 G/10 ML UDC GT SCH ×3 (05:17→17:28)
[2016-10-28] MEDS: PROSOURCE / PROSTAT (PYXIS) 30 ML UDC GT SCH (05:17)
[2016-10-28] MEDS: BLOOD SUGAR DIAGNOSTIC 1 EACH STRIP IN SCH ×3 (05:24→18:16)
[2016-10-28] MEDS: INSULIN REGULAR, HUMAN 100 UNIT/ML 3 ML VIAL SQ PRN (05:26)
[2016-10-28 07:49] LABS: BASOPHILS # (AUTO) 0.1 /CMM (0.0-0.2); BASOPHILS % (AUTO) 0.7 % (0.0-2.0); DIFF TOTAL % 100 %; EOSINOPHILS # (AUTO) 0.4 /CMM (0.0-0.7); EOSINOPHILS % (AUTO) 2.7 % (0.0-6.0); LYMPHOCYTES # (AUTO) 0.7 /CMM (0.8-4.8); LYMPHOCYTES % (AUTO) 4.9 % (20.0-44.0); MEAN CORPUSCULAR HEMOGLOBIN 31 PG (26.0-33.0); MEAN CORPUSCULAR HGB CONC 34 g/dl (31.0-36.0); MEAN CORPUSCULAR VOLUME 92 fL (80-96); MONOCYTES # (AUTO) 0.8 /CMM (0.1-1.30); MONOCYTES % (AUTO) 5.3 % (2.0-12.0); NEUTROPHILS # (AUTO) 12.7 /CMM (1.8-8.9); NEUTROPHILS % (AUTO) 86.4 % (43.0-81.0); PLATELET COUNT (AUTO) 141 /CMM (150-450); WHITE BLOOD COUNT (AUTO) 14.8 K/uL (4.3-11.0)
[2016-10-28 07:53] LABS: CALCIUM, SERUM 7.8 mg/dL (8.5-10.1); CREATININE 2.3 mg/dL (0.6-1.3); PHOSPHORUS 2.1 mg/dL (2.5-4.9); POTASSIUM 4.8 mmol/L (3.5-5.1)
[2016-10-28 07:58] LABS: RED BLOOD CELL COUNT(AUTO) 1.82 MIL/uL (4.5-6.0)
[2016-10-28 08:00] LABS: HEMATOCRIT 17 % (39-51); HEMOGLOBIN 5.6 g/dL (13.5-17.5)
[2016-10-28] MEDS: PANTOPRAZOLE 40 MG/PACK PACK GT SCH (08:17)
[2016-10-28] MEDS: ASPIRIN 81 MG TAB.CHEW GT SCH (09:00)
[2016-10-28 09:27] LABS: ANISOCYTOSIS 1+; EOSINOPHILS % (MANUAL) 3 % (0-4); HYPOCHROMASIA 1+; LYMPHOCYTES % (MANUAL) 5 % (16-48); PLATELET ESTIMATE DECREASED
[2016-10-28] MEDS: CHLORHEXIDINE GLUCONATE 15 ML UDC MM SCH ×2 (09:42→21:40)
[2016-10-28] MEDS: VIT B CMPLX 3/FA/VIT C/BIOTIN 1 TAB TABLET GT SCH (09:42)
[2016-10-28] MEDS: ASCORBIC ACID 500 MG TABLET GT SCH ×2 (09:42→17:28)
[2016-10-28] MEDS: THIAMINE HCL 100 MG TABLET GT SCH (09:42)
[2016-10-28] MEDS: ACIDOPHILUS/BULGARICUS 1 EACH TAB.CHEW GT SCH ×2 (09:42→17:28)
[2016-10-28] MEDS: LINEZOLID RTU BAG 600 MG in PREMIX 1 EA IV SCH ×2 (09:42→21:40)
[2016-10-28] MEDS: ZINC SULFATE 220 MG CAPSULE GT SCH (09:42)
[2016-10-28] MEDS: COD LIVER OIL/ZINC OXIDE 120 GM TUBE TP SCH (09:44)
[2016-10-28] MEDS: HYDROGEL DRESSING 90 GM TUBE TP SCH (09:44)
[2016-10-28] MEDS: CLOTRIMAZOLE 1% 15 GM TUBE TP SCH ×2 (09:44→17:28)
[2016-10-28] MEDS ORDERED: BLOOD IV SET 1 EA INFUS.SET MC ONE ×2 (10:40→15:02)
[2016-10-28] MEDS ORDERED: IV NS 0.9% 250 ML IV ONE (10:40)
[2016-10-28] MEDS ORDERED: NEUTRA PHOS 1 POWD.PACKET GT ONE (18:00)
[2016-10-28 21:14] LABS: BASOPHILS % (AUTO) 0.1 % (0.0-2.0); DIFF TOTAL % 100 %; EOSINOPHILS # (AUTO) 1.2 /CMM (0.0-0.7); EOSINOPHILS % (AUTO) 11.8 % (0.0-6.0); HEMATOCRIT 23 % (39-51); HEMOGLOBIN 7.7 g/dL (13.5-17.5); LYMPHOCYTES # (AUTO) 0.7 /CMM (0.8-4.8); LYMPHOCYTES % (AUTO) 7.4 % (20.0-44.0); MEAN CORPUSCULAR HEMOGLOBIN 31 PG (26.0-33.0); MEAN CORPUSCULAR HGB CONC 33 g/dl (31.0-36.0); MEAN CORPUSCULAR VOLUME 92 fL (80-96); MONOCYTES # (AUTO) 0.9 /CMM (0.1-1.30); MONOCYTES % (AUTO) 8.7 % (2.0-12.0); NEUTROPHILS # (AUTO) 7.1 /CMM (1.8-8.9); PLATELET COUNT (AUTO) 119 /CMM (150-450); RED BLOOD CELL COUNT(AUTO) 2.51 MIL/uL (4.5-6.0); WHITE BLOOD COUNT (AUTO) 9.9 K/uL (4.3-11.0)
[2016-10-28] MEDS: ATORVASTATIN 10 MG TABLET GT SCH (21:40)
[2016-10-29] VITALS (7 sets, daily range): BP systolic 123–150; BP diastolic 48–98
[2016-10-29] MEDS: SUCRALFATE 1 G/10 ML UDC GT SCH ×5 (00:06→23:46)
[2016-10-29] MEDS: BLOOD SUGAR DIAGNOSTIC 1 EACH STRIP IN SCH ×5 (00:08→23:50)
[2016-10-29] MEDS: INSULIN REGULAR, HUMAN 100 UNIT/ML 3 ML VIAL SQ PRN ×4 (00:11→17:25)
[2016-10-29] MEDS: PROSOURCE / PROSTAT (PYXIS) 30 ML UDC GT SCH (05:23)
[2016-10-29] MEDS: hydrALAZINE HCL 25 MG TABLET GT SCH ×3 (05:24→21:33)
[2016-10-29] MEDS: RENAL NOVASOURCE 1,000 ML BOTTLE GT PRN (05:31)
[2016-10-29] MEDS: PANTOPRAZOLE 40 MG/PACK PACK GT SCH (06:53)
[2016-10-29 08:19] LABS: BASOPHILS % (AUTO) 0.1 % (0.0-2.0); DIFF TOTAL % 100 %; EOSINOPHILS # (AUTO) 1.4 /CMM (0.0-0.7); HEMATOCRIT 25 % (39-51); HEMOGLOBIN 8.3 g/dL (13.5-17.5); LYMPHOCYTES # (AUTO) 0.7 /CMM (0.8-4.8); LYMPHOCYTES % (AUTO) 7.4 % (20.0-44.0); MEAN CORPUSCULAR HEMOGLOBIN 31 PG (26.0-33.0); MEAN CORPUSCULAR HGB CONC 34 g/dl (31.0-36.0); MEAN CORPUSCULAR VOLUME 92 fL (80-96); MONOCYTES # (AUTO) 0.8 /CMM (0.1-1.30); MONOCYTES % (AUTO) 7.7 % (2.0-12.0); NEUTROPHILS % (AUTO) 70.8 % (43.0-81.0); PLATELET COUNT (AUTO) 119 /CMM (150-450); RED BLOOD CELL COUNT(AUTO) 2.71 MIL/uL (4.5-6.0); WHITE BLOOD COUNT (AUTO) 9.9 K/uL (4.3-11.0)
[2016-10-29 08:38] LABS: CALCIUM, SERUM 8.3 mg/dL (8.5-10.1); CREATININE 2.3 mg/dL (0.6-1.3); POTASSIUM 4.8 mmol/L (3.5-5.1)
[2016-10-29] MEDS: CHLORHEXIDINE GLUCONATE 15 ML UDC MM SCH ×2 (09:30→21:34)
[2016-10-29] MEDS: ACIDOPHILUS/BULGARICUS 1 EACH TAB.CHEW GT SCH ×2 (09:30→17:15)
[2016-10-29] MEDS: VIT B CMPLX 3/FA/VIT C/BIOTIN 1 TAB TABLET GT SCH (09:30)
[2016-10-29] MEDS: THIAMINE HCL 100 MG TABLET GT SCH (09:31)
[2016-10-29] MEDS: ZINC SULFATE 220 MG CAPSULE GT SCH (09:31)
[2016-10-29] MEDS: ASCORBIC ACID 500 MG TABLET GT SCH ×2 (09:31→17:15)
[2016-10-29] MEDS: LINEZOLID RTU BAG 600 MG in PREMIX 1 EA IV SCH (09:31)
[2016-10-29] MEDS: ASPIRIN 81 MG TAB.CHEW GT SCH (09:31)
[2016-10-29] MEDS: CLOTRIMAZOLE 1% 15 GM TUBE TP SCH ×2 (09:45→17:16)
[2016-10-29] MEDS: COD LIVER OIL/ZINC OXIDE 120 GM TUBE TP SCH (09:45)
[2016-10-29] MEDS: HYDROGEL DRESSING 90 GM TUBE TP SCH (09:50)
[2016-10-29] MEDS ORDERED: NEUTRA PHOS 1 POWD.PACKET GT ONE (17:00)
[2016-10-29] MEDS: LINEZOLID 600 MG TABLET GT SCH (21:33)
[2016-10-29] MEDS: ATORVASTATIN 10 MG TABLET GT SCH (21:34)
[2016-10-30] VITALS: BP 139/54
[2016-10-30 04:00] VITALS: BP 153/55
[2016-10-30] MEDS: PROSOURCE / PROSTAT (PYXIS) 30 ML UDC GT SCH (05:14)
[2016-10-30] MEDS: SUCRALFATE 1 G/10 ML UDC GT SCH ×2 (05:14→11:45)
[2016-10-30] MEDS: hydrALAZINE HCL 25 MG TABLET GT SCH ×2 (05:14→12:11)
[2016-10-30] MEDS: BLOOD SUGAR DIAGNOSTIC 1 EACH STRIP IN SCH ×2 (05:15→11:44)
[2016-10-30] MEDS: RENAL NOVASOURCE 1,000 ML BOTTLE GT PRN (05:15)
[2016-10-30] MEDS: INSULIN REGULAR, HUMAN 100 UNIT/ML 3 ML VIAL SQ PRN ×2 (05:25→11:53)
[2016-10-30 08:00] VITALS: BP 164/64
[2016-10-30 08:02] LABS: CALCIUM, SERUM 8.4 mg/dL (8.5-10.1); CREATININE 2.7 mg/dL (0.6-1.3); PHOSPHORUS 2.5 mg/dL (2.5-4.9); POTASSIUM 5.1 mmol/L (3.5-5.1)
[2016-10-30 09:21] LABS: BASOPHILS % (AUTO) 0.2 % (0.0-2.0); DIFF TOTAL % 100 %; EOSINOPHILS # (AUTO) 1.8 /CMM (0.0-0.7); EOSINOPHILS % (AUTO) 17.7 % (0.0-6.0); HEMATOCRIT 24 % (39-51); LYMPHOCYTES # (AUTO) 0.6 /CMM (0.8-4.8); LYMPHOCYTES % (AUTO) 5.4 % (20.0-44.0); MEAN CORPUSCULAR HEMOGLOBIN 31 PG (26.0-33.0); MEAN CORPUSCULAR HGB CONC 33 g/dl (31.0-36.0); MEAN CORPUSCULAR VOLUME 93 fL (80-96); MONOCYTES # (AUTO) 0.7 /CMM (0.1-1.30); MONOCYTES % (AUTO) 6.6 % (2.0-12.0); NEUTROPHILS # (AUTO) 7.2 /CMM (1.8-8.9); NEUTROPHILS % (AUTO) 70.1 % (43.0-81.0); PLATELET COUNT (AUTO) 120 /CMM (150-450); RED BLOOD CELL COUNT(AUTO) 2.59 MIL/uL (4.5-6.0); WHITE BLOOD COUNT (AUTO) 10.3 K/uL (4.3-11.0)
[2016-10-30] MEDS: LINEZOLID 600 MG TABLET GT SCH (09:53)
[2016-10-30] MEDS: THIAMINE HCL 100 MG TABLET GT SCH (09:53)
[2016-10-30] MEDS: PANTOPRAZOLE 40 MG/PACK PACK GT SCH (09:53)
[2016-10-30] MEDS: CHLORHEXIDINE GLUCONATE 15 ML UDC MM SCH (09:53)
[2016-10-30] MEDS: ACIDOPHILUS/BULGARICUS 1 EACH TAB.CHEW GT SCH (09:53)
[2016-10-30] MEDS: ZINC SULFATE 220 MG CAPSULE GT SCH (09:53)
[2016-10-30] MEDS: ASPIRIN 81 MG TAB.CHEW GT SCH (09:53)
[2016-10-30] MEDS: VIT B CMPLX 3/FA/VIT C/BIOTIN 1 TAB TABLET GT SCH (09:53)
[2016-10-30] MEDS: ASCORBIC ACID 500 MG TABLET GT SCH (09:54)
[2016-10-30] MEDS: HYDROGEL DRESSING 90 GM TUBE TP SCH (09:54)
[2016-10-30] MEDS: COD LIVER OIL/ZINC OXIDE 120 GM TUBE TP SCH (09:55)
[2016-10-30] MEDS: CLOTRIMAZOLE 1% 15 GM TUBE TP SCH (09:55)
[2016-10-30] MEDS: hydrALAZINE HCL 10 MG TABLET PEG PRN ×2 (12:02→12:08)
[2016-10-30 16:00] VITALS: BP 145/85
[2016-10-30 16:31] VITALS: BP 164/64
== END 2016-10-30 16:15 | DRG 981 ==
LOC: ER 00:28 → TELE 01:38
PROVIDERS: ADMIT Family Medicine; ATTEND Internal Medicine
PROC: 5A1955Z Respiratory Ventilation, Greater than 96 Consecutive Hours (ICD-10-PCS; 2016-10-22)
PROC: 5A1D60Z (ICD-10-PCS; 2016-10-22)
PROC: 30233N1 Transfusion of Nonautologous Red Blood Cells into Peripheral Vein, Percutaneous Approach (ICD-10-PCS; 2016-10-24)
PROC: 05H533Z Insertion of Infusion Device into Right Subclavian Vein, Percutaneous Approach (ICD-10-PCS; 2016-10-26)
PROC: 0KBN0ZZ Excision of Right Hip Muscle, Open Approach (ICD-10-PCS; principal; 2016-10-27)
PROC: 0KBP0ZZ Excision of Left Hip Muscle, Open Approach (ICD-10-PCS; 2016-10-27)
DX: K31.811 Angiodysplasia of stomach and duodenum with bleeding (principal); R53.2 Functional quadriplegia; G93.41 Metabolic encephalopathy; N18.6 End stage renal disease; E43 Unspecified severe protein-calorie malnutrition; L89.154 Pressure ulcer of sacral region, stage 4; I21.4 Non-ST elevation (NSTEMI) myocardial infarction; J96.21 Acute and chronic respiratory failure with hypoxia; J96.10 Chronic respiratory failure, unspecified whether with hypoxia or hypercapnia; I12.0 Hypertensive chronic kidney disease with stage 5 chronic kidney disease or end stage renal disease; Z99.11 Dependence on respirator [ventilator] status; G93.1 Anoxic brain damage, not elsewhere classified; D62 Acute posthemorrhagic anemia; I50.32 Chronic diastolic (congestive) heart failure; D68.59 Other primary thrombophilia; K92.2 Gastrointestinal hemorrhage, unspecified; I25.10 Atherosclerotic heart disease of native coronary artery without angina pectoris; E11.22 Type 2 diabetes mellitus with diabetic chronic kidney disease; Z99.2 Dependence on renal dialysis; I44.1 Atrioventricular block, second degree; R00.1 Bradycardia, unspecified; Z95.2 Presence of prosthetic heart valve; I08.1 Rheumatic disorders of both mitral and tricuspid valves; Z74.01 Bed confinement status; B95.2 Enterococcus as the cause of diseases classified elsewhere; Z16.21 Resistance to vancomycin; I48.0 Paroxysmal atrial fibrillation; I73.9 Peripheral vascular disease, unspecified; K44.9 Diaphragmatic hernia without obstruction or gangrene; N48.89 Other specified disorders of penis; R13.10 Dysphagia, unspecified; Z93.0 Tracheostomy status; Z93.1 Gastrostomy status; Z95.1 Presence of aortocoronary bypass graft
CPT/HCPCS: 31720; 36415; 71010-TC; 80048-TC; 80076-TC; 82962-TC; 83605-TC; 83735-TC; 84100-TC; 84484-TC; 85025-TC; 85730-TC; 86850-TC; 86901; 86921-TC; 87040-TC; 87081-TC; 90935-TC; 94003-TC; A4216; A4217; A4606; A6248; A6253; A6402; A6403; C9113; J0360; J0885; J1644; J1815; J2020; J2185; J2270; J2405; J3475; J3490; J7030; J7050; P9016-BL; P9047; Z7610